=== PATIENT | male | born 1990 | race Two or more races ===

== ENCOUNTER 2018-08-02 15:53 | Emergency (ER) | payer MEDICAID, OTHER ==
[~2018-08-02] VITALS: Ht 180.3 cm; Wt 54.5 kg
[~2018-08-02 15:53] MED LIST: NO HOME MEDS
[2018-08-02 16:09] VITALS: BP 136/76
[2018-08-02] MEDS ORDERED: AMOX-419 PO (16:31)
[2018-08-02] MEDS ORDERED: ALBU6.7H INH (16:31)
[2018-08-02] MEDS ORDERED: GUAI120015 PO (16:31)
== END 2018-08-02 16:43 | disposition home or self-care (01) ==
LOC: ER 15:53
DX: J20.9 Acute bronchitis, unspecified (principal)
CPT/HCPCS: 71046; 99283